=== PATIENT | male | born 1965 | race Two or more races ===

== ENCOUNTER 2018-12-06 22:16 | Emergency (ER) | payer SELFPAY ==
[~2018-12-06] VITALS: Ht 172.7 cm; Wt 75.0 kg
[2018-12-06] MEDS ORDERED: SODIUM CHLORIDE 0.9% 1,000 ML IV ONE (23:44)
[2018-12-06] MEDS ORDERED: TETANUS, DIPHTHERIA, PERTUSSIS VAC/PF 0.5ML (>7YR OLD) IM ONE (23:45)
[2018-12-07 00:29] LABS: HEMATOCRIT. 41.8 % (42.0-52.0); HEMOGLOBIN. 14.4 g/dL (14.0-18.0); MEAN CORPUSCULAR HEMOGLOBIN 29.9 pg (28.0-32.0); MEAN CORPUSCULAR VOLUME 86.8 fL (80.0-94.0); MEAN PLATELET VOLUME 8.4 fl (7.4-10.4); PLATELET 219 x1000/uL (130-400); RED BLOOD CELL COUNT 4.82 mill/uL (4.7-6.1)
[2018-12-07 00:32] LABS: CHLORIDE 106 mEq/L (98-107)
[2018-12-07 00:34] LABS: PARTIAL THROMBOPLASTIN TIME 23.3 sec (23.4-31.0)
[2018-12-07 01:30] LABS: PLATELET ESTIMATE NORMAL
[2018-12-07] MEDS ORDERED: IOHEXOL-300 100 ML BOTTLE ONE (02:31)
[2018-12-07 03:30] LABS: CLARITY URINE CLEAR (CLEAR); COLOR URINE YELLOW (YELLOW); KETONES URINE NEGATIVE (NEGATIVE); LEUKOCYTE ESTERASE URINE NEGATIVE (NEGATIVE); NITRITE URINE NEGATIVE (NEGATIVE); OCCULT BLOOD URINE 2+ (NEGATIVE); PROTEIN URINE NEGATIVE (NEGATIVE); SPECIFIC GRAVITY URINE 1.036 (1.005-1.030); UROBILINOGEN URINE 0.2 E.U./dL (0.2-1.0)
[2018-12-07 04:43] VITALS: BP 118/51
== END 2018-12-07 06:38 | disposition short-term general hospital (02) ==
LOC: ER 22:16
DX: S06.0X0A Concussion without loss of consciousness, initial encounter (principal); S16.1XXA Strain of muscle, fascia and tendon at neck level, initial encounter; S00.81XA Abrasion of other part of head, initial encounter; S27.329A Contusion of lung, unspecified, initial encounter; S22.31XA Fracture of one rib, right side, initial encounter for closed fracture; S22.069A Unspecified fracture of T7-T8 vertebra, initial encounter for closed fracture; S37.81 Injury of adrenal gland; J93.9 Pneumothorax, unspecified; Z88.0 Allergy status to penicillin; Z88.5 Allergy status to narcotic agent; V49.49XA Driver injured in collision with other motor vehicles in traffic accident, initial encounter; Y93.89 Activity, other specified; Y92.89 Other specified places as the place of occurrence of the external cause; Y99.8 Other external cause status
CPT/HCPCS: 36415; 70450; 71045; 71260; 72125; 72170; 74177; 80053; 81003; 82962; 83690; 85025; 85610; 85730; 86850; 86900; 86901; 90471; 90715; 99285; J7030; Q9967; Z7610